=== PATIENT | male | born 1975 | race Caucasian/White ===

== ENCOUNTER 2017-06-14 11:41 | Emergency (ER) | payer OTHER ==
[~2017-06-14] VITALS: Ht 195.5 cm; Wt 127.0 kg
[~2017-06-14 11:41] MED LIST: BENTYL20 MG PO; FLEXERIL10 MG PO; MOTRIN800 MG PO; VICODIN ES 7501 TAB PO; ZOFRAN4 MG PO
[2017-06-14] MEDS ORDERED: DELTASONE20 M1 PO (12:07)
== END 2017-06-14 12:13 | disposition home or self-care (01) ==
LOC: ED 11:41
DX: G89.29 Other chronic pain (principal); M54.5 Low back pain; Z91.040 Latex allergy status

== ENCOUNTER 2018-10-18 05:36 | Emergency (ER) | payer BC ==
[~2018-10-18] VITALS: Ht 195.5 cm; Wt 127.0 kg
[~2018-10-18 05:36] MED LIST changes: +CYCLOBENZAPRINE10 MG PO; +DELTASONE20 M1 PO; +IBU800 MG PO
== END 2018-10-18 06:46 | disposition left against medical advice (07) ==
LOC: ED 05:36
DX: M54.2 Cervicalgia (principal); M54.6 Pain in thoracic spine; Z53.21 Procedure and treatment not carried out due to patient leaving prior to being seen by health care provider

== ENCOUNTER → 2020-08-21 | Outpatient (CLI) | payer BC ==
[~2020-08-21] MED LIST changes: +ACTOS30 M1 PO; +ASPIRIN81 M1 PO; +LISINOPRIL10 M1 PO; +METFORMIN HYD1000 MG PO; +PAXIL20 M1 PO; +SIMVASTATIN40 MG PO; +TOPROL XL50 M1 PO; +TRULICITY1.5 MG/0.5 SC; +VIT D PO
== END | disposition home or self-care (01) ==
LOC: CARD 00:43
PROVIDERS: ATTEND Internal Medicine Cardiovascular Disease
DX: I25.89 Other forms of chronic ischemic heart disease (principal); I51.7 Cardiomegaly; R94.31 Abnormal electrocardiogram [ECG] [EKG]

== ENCOUNTER 2020-09-12 13:46 | Emergency (ER) | payer BC ==
[~2020-09-12] VITALS: Ht 195.5 cm; Wt 124.7 kg
[2020-09-12 14:03] LABS: BASO # 0.1 10*3/uL (0.0-0.1); BASO % 0.6 % (0.0-1.0); EOS # 0.1 10*3/uL (0.0-0.4); EOS % 1.4 % (1.0-4.0); HEMATOCRIT 44.4 % (42.0-52.0); LYMPH % 10.9 % (27.0-41.0); MEAN CELL VOLUME 97.2 fl (80.0-94.0); MEAN CORPUSCULAR HGB 33.3 pg (27.0-31.0); MEAN CORPUSCULAR HGB CONC 34.2 g/dl (33.0-37.0); MEAN PLATELET VOLUME 10.2 fl (9.6-12.3); MONO # 0.4 10*3/uL (0.1-1.0); MONO % 4.1 % (3.0-9.0); NEUT # 7.9 10*3/uL (2.3-7.9); NEUT % 82.7 % (47.0-73.0); PLATELET COUNT AUTOMATED 199 10*3/uL (130-400); RED BLOOD COUNT 4.57 10*6/uL (4.50-5.90); RED CELL DISTRI WIDTH 13.5 % (0-14.5); WHITE BLOOD COUNT 9.5 10*3/uL (4.8-10.8)
[2020-09-12 14:20] LABS: ALBUMIN 4.2 gm/dl (3.1-4.5); ALKALINE PHOSPHATASE 63 U/L (45-117); BUN 20 mg/dl (7-24); CHLORIDE 105 mmol/L (98-107); CREATININE 1.51 mg/dL (0.70-1.30); SGOT/AST 12 IU/L (3-35); SGPT/ALT 32 U/L (12-78); SODIUM 132 mmol/L (136-145); TOTAL PROTEIN 7.8 gm/dL (6.4-8.2)
[2020-09-12 14:21] LABS: TROPONIN I < 0.015 ng/ml (<0.045)
[2020-09-12] MEDS ORDERED: IMDUR SA30 MG PO (15:38)
== END 2020-09-12 16:01 | disposition home or self-care (01) ==
LOC: ED 13:46
PROVIDERS: Student in an Organized Health Care Education/Training Program
DX: R07.89 Other chest pain (principal); R42 Dizziness and giddiness; Z95.818 Presence of other cardiac implants and grafts; I25.2 Old myocardial infarction; Z79.899 Other long term (current) drug therapy; Z79.82 Long term (current) use of aspirin; Z98.890 Other specified postprocedural states